=== PATIENT | female | born 1955 | race Caucasian/White ===

== ENCOUNTER 2022-02-24 16:25 | Outpatient (CLI) | payer MEDICARE, OTHER, SELFPAY | END 2022-02-24 16:26 | disposition home or self-care (01) | PROVIDERS: PCP Internal Medicine; Visit Provider Emergency Medicine Emergency Medical Services | DX: R06.02 Shortness of breath (principal) ==

== ENCOUNTER 2022-02-24 17:14 | Emergency (ER) | payer MEDICARE, OTHER, SELFPAY ==
--- NOTE | 2022-02-24 17:38 | CRLHL7_ITS ---
For Patients: As a result of the Cures Act, medical imaging exams and procedure reports are released immediately into your electronic medical record. You may view this report before your referring provider. If you have questions, please contact your health care provider. INDICATION: Shortness of breath. CHEST, ONE VIEW An AP radiograph of the chest was performed. Comparison: No previous studies are currently available for comparison. The lungs appear clear and no pleural effusions are identified. The cardiomediastinal silhouette and pulmonary vasculature appear normal, as do the visualized bones. IMPRESSION: No acute intrathoracic abnormality identified. AMANDA MARSHALL MD [facility] Dictated by: Hiro Marshall MD @ 02/24/2022 18:18:23 (Electronically Signed)
[2022-02-24 17:42] VITALS: BP 124/66; PULSE 71; RESP 16; TEMP 37.5; O2SAT 95; BMI 34.0
--- NOTE | 2022-02-24 17:45 | ED.GENADULT ---
HPI - General Adult General Time Seen by Provider: 17:44 Date Seen: 02/24/22 Chief complaint: Shortness of Breath/Dyspnea Stated complaint: Shortness of breath Time Seen by Provider: 02/24/22 17:15 Source: patient Mode of arrival: ambulatory Limitations: no limitations History of Present Illness HPI narrative: The patient is a 66-year-old female who presents with cough shortness of breath, fever, sore throat, weakness. Symptoms started yesterday worsened today, main complaint is general malaise and body aches and not feeling well. No history of COVID exposure that she knows, no loss of taste or smell. Dr. Jay in his usual Dr.. No chronic lung disease. Chart reviewed. No leg swelling or edema. No bleeding or clotting problems. No hemoptysis. He O2 sat on presentation is 96% on room air. The patient actually called an ambulance but the ambulance followed her into the hospital on her own vehicle. Related Data Home Medications Medication Instructions Recorded Confirmed No Known Home Medications 02/24/22 02/24/22 Allergies Allergy/AdvReac Type Severity Reaction Status Date / Time No Known Drug Allergies Allergy Verified 02/24/22 17:48 Review of Systems Status of ROS: Reports: 6 or more systems reviewed and unremarkable except as noted in History and below [facility] Medical History (Updated 02/24/22 @ 17:49 by Henry Terrell MD) No significant past medical history Surgical History (Updated 02/24/22 @ 17:49 by Ameena Anne RN) History of hysterectomy Social History Smoking Status: Never smoker Do you use any of these nicotine containing products: None Second hand tobacco smoke exposure: No How often do you have a drink containing alcohol: 2-3 times a week How many standard drinks containing alcohol do you have on a typical day: 1 or 2 How often do you have six or more drinks on one occasion: Never AUDIT-C Alcohol total score: 3 Non-prescribed substance use: denies use Exam Narrative: Exam Narrative: Patient is in no apparent distress, talks in even unlabored sentences, noncyanotic. O2 sat is 96% on room air. In general patient is alert orient x3 Neck is supple Chest is clear no rales or wheezing Heart rhythm regular without murmur Extremities are no edema Abdomen benign Neurologic is nonfocal in upper lower extremities Skin exam is unremarkable, warm and dry, good peripheral perfusion noted Const: Vital Signs, click to edit/add: Vital Signs - 24 hr 02/24/22 17:42 02/24/22 18:30 02/24/22 19:00 Temperature 99.5 F Pulse Rate [Right Pulse Oximeter] 71 73 74 Respiratory Rate 16 16 16 Blood Pressure [Ri t Upper Arm] 124/66 136/65 123/56 L Pulse Oximetry 95 93 96 Course Course Hospital Course: Because of the patient's complaint of not feeling well, sore throat, shortness of breath, cough a COVID test will be done. Will get a portable chest x-ray, laboratory studies, EKG, and troponin. Will give IV fluid. Put on oximetry and a monitoring analyst Vital Signs Vital signs: Initial Vital Signs Temperature 99.5 F 02/24/22 17:42 Temperature Source Temporal Artery Scan 02/24/22 17:42 Pulse Rate 71 02/24/22 17:42 Respiratory Rate 16 02/24/22 17:42 Blood Pressure 124/66 02/24/22 17:42 Blood Pressure Mean 85 02/24/22 17:42 Blood Pressure Position Sitting 02/24/22 17:42 Pulse Oximetry 95 02/24/22 17:42 Oxygen Delivery Method 02/24/22 17:42 Vital Signs Temperature 99.5 F 02/24/22 17:42 Pulse Rate 71 02/24/22 17:42 Respiratory Rate 16 02/24/22 17:42 Blood Pressure 124/66 02/24/22 17:42 Pulse Oximetry 95 02/24/22 17:42 Temperature 99.5 F 02/24/22 17:42 Pulse Rate 74 02/24/22 19:00 Respiratory Rate 16 02/24/22 19:00 Blood Pressure 123/56 L 02/24/22 19:00 Pulse Oximetry 96 02/24/22 19:00 Medical Decision Making MDM Narrative Medical decision making narrative: The patient has symptoms consistent with COVID, however could be some type of other viral illness, pneumonia, acute coronary syndrome these will be ruled out. Addendum: Patient has a chest x-ray that by my read looks negative, Radiology confirms. Troponin is negative. EKG by my read shows normal sinus rhythm nonspecific ST changes no acute changes. Patient is not having chest pain. Patient's CBC looks unremarkable, electrolytes her reassuring, strep test from the throat and COVID test are negative. Patient has had stable hemodynamic monitoring, good oximetry. At this point she does not feel short of breath but does have some body aches does not feel well. Likely viral type syndrome. At this point recommend rest fluids observation, Tylenol or Advil as needed, update primary care doctor in the next 2 days, light activity rest. Adequate fluid intake. Return if problems or concerns, and she was comfortable this plan Lab Data Labs: Lab Results 02/24/22 02/24/22 02/24/22 Range/Units 18:08 18:08 18:08 WBC 3.54 L (4.50-11.00) K/uL RBC 4.80 (4.00-5.20) m/uL Hgb 14.0 (12.0-16.0) gm/dL Hct 43.8 (33.0-51.0) % MCV 91 (80-100) fL MCH 29 (26-34) pg MCHC 32 (32-36) gm/dL RDW Coeff of Belinda 13.5 (11.5-15.5) % Plt Count 153 (140-440) K/uL Neut % (Auto) 77.1 H (42.0-72.0) % Lymph % (Auto) 17.2 L (20-44) % [place] % (Auto) 5.1 (0.0-11.0) % Eos % (Auto) 0.0 (0.0-7.0) % Baso % (Auto) 0.3 (0.0-3.0) % Neut # (Auto) 2.70 (1.7-7.0) K/uL Lymph # (Auto) 0.60 L (0.90-2.90) K/uL [place] # (Auto) 0.20 (0.00-0.90) K/UL Eos # (Auto) 0.00 (0.00-0.50) K/uL Baso # (Auto) 0.00 (0.00-0.30) K/uL Abs Immat Gran (auto) 0.01 (0.00-0.30) K/uL Sodium 135 (135-149) mmol/L Potassium 4.0 (3.6-5.1) mmol/L Chloride 104 (96-114) mmol/L Carbon Dioxide 25 (20-32) mmol/L BUN 14 (7-30) mg/dL Creatinine 0.9 (0.5-1.5) mg/dL Estimated Creat Clear 48.43 Glucose 108 (60-115) mg/dL Calcium 8.7 (8.4-10.6) mg/dL Total Bilirubin 0.5 (0.1-1.5) mg/dL Direct Bilirubin 0.2 (0.0-0.5) mg/dL AST 30 (12-35) U/L ALT 21 (4-35) U/L Alkaline Phosphatase 92 (40-150) U/L C-Reactive Protein 2.2 H (0.5-1.0) mg/dL Total Protein 6.7 (6.0-8.3) g/dL Albumin 4.3 (3.3-5.0) g/dL SARS-CoV-2 (PCR) (Negative) Group A Strep DNA (No Detected) POC Troponin I (0.01-0.04) ng/ml 02/24/22 02/24/22 02/24/22 Range/Units 18:08 18:10 18:15 WBC (4.50-11.00) K/uL RBC (4.00-5.20) m/uL Hgb (12.0-16.0) gm/dL Hct (33.0-51.0) % MCV (80-100) fL MCH (26-34) pg MCHC (32-36) gm/dL RDW Coeff of Belinda (11.5-15.5) % Plt Count (140-440) K/uL Neut % (Auto) (42.0-72.0) % Lymph % (Auto) (20-44) % [place] % (Auto) (0.0-11.0) % Eos % (Auto) (0.0-7.0) % Baso % (Auto) (0.0-3.0) % Neut # (Auto) (1.7-7.0) K/uL Lymph # (Auto) (0.90-2.90) K/uL [place] # (Auto) (0.00-0.90) K/UL Eos # (Auto) (0.00-0.50) K/uL Baso # (Auto) (0.00-0.30) K/uL Abs Immat Gran (auto) (0.00-0.30) K/uL Sodium (135-149) mmol/L Potassium (3.6-5.1) mmol/L Chloride (96-114) mmol/L Carbon Dioxide (20-32) mmol/L BUN (7-30) mg/dL Creatinine (0.5-1.5) mg/dL Estimated Creat Clear Glucose (60-115) mg/dL Calcium (8.4-10.6) mg/dL Total Bilirubin (0.1-1.5) mg/dL Direct Bilirubin (0.0-0.5) mg/dL AST (12-35) U/L ALT (4-35) U/L Alkaline Phosphatase (40-150) U/L C-Reactive Protein (0.5-1.0) mg/dL Total Protein (6.0-8.3) g/dL Albumin (3.3-5.0) g/dL SARS-CoV-2 (PCR) Negative SARS-CoV-2 (Negative) Group A Strep DNA NOT DETECTED (No Detected) POC Troponin I 0.00 L (0.01-0.04) ng/ml Discharge Plan Discharge Clinical Impression: Cough with fever Patient Disposition: Home, Self-Care Condition: Stable Additional Instructions: rest, fluids, advil and tylenol as needed, update primary in 2 days, return sooner as needed. Activity Level: Light activity Discharge Diet: Regular Prescriptions: No Action No Known Home Medications 0RF Follow Up/Referrals: Tamia Douglas MD [Primary Care Provider] - Stand Alone Forms: [facility] Instructions
[2022-02-24 18:19] LABS: Basophils Percent Auto 0.3 % (0.0-3.0); Hematocrit 43.8 % (33.0-51.0); Immature Granulocytes Abs Auto 0.01 K/uL (0.00-0.30); Lymphocytes Percent Auto 17.2 % (20-44); Mean Corpuscular HGB Conc 32 gm/dL (32-36); Mean Corpuscular Hemoglobin 29 pg (26-34); Mean Corpuscular Volume 91 fL (80-100); Monocytes Percent Auto 5.1 % (0.0-11.0); Neutrophils Percent Auto 77.1 % (42.0-72.0); Platelet Count* 153 K/uL (140-440); RDW Coefficient of Variation % 13.5 % (11.5-15.5); White Blood Count* 3.54 K/uL (4.50-11.00)
[2022-02-24 18:21] LABS: Slide Review Reflex No
[2022-02-24] MEDS: 0.9 % SODIUM CHLORIDE 1000 ml 1,000 ML 6000 ML IV (18:23)
[2022-02-24 18:30] VITALS: BP 136/65; PULSE 73; RESP 16; O2SAT 93
[2022-02-24 18:38] LABS: Chloride* 104 mmol/L (96-114); Sodium* 135 mmol/L (135-149)
[2022-02-24 18:39] LABS: Albumin* 4.3 g/dL (3.3-5.0)
[2022-02-24 18:41] LABS: Blood Urea Nitrogen* 14 mg/dL (7-30); Carbon Dioxide* 25 mmol/L (20-32); Creatinine* 0.9 mg/dL (0.5-1.5); Est. Creatinine Clearance* 48.43; Estimated Glomerular Filt Rate 70.95
[2022-02-24 18:42] LABS: Alanine Aminotransferase* 21 U/L (4-35); Alkaline Phosphatase* 92 U/L (40-150); Aspartate Amino Transferase* 30 U/L (12-35); Bilirubin Direct* 0.2 mg/dL (0.0-0.5); Bilirubin Total* 0.5 mg/dL (0.1-1.5); Calcium* 8.7 mg/dL (8.4-10.6); Glucose* 108 mg/dL (60-115); Total Protein* 6.7 g/dL (6.0-8.3)
[2022-02-24 18:44] LABS: C Reactive Protein* 2.2 mg/dL (0.5-1.0)
[2022-02-24 19:00] VITALS: BP 123/56; PULSE 74; RESP 16; O2SAT 96
[2022-02-24 19:13] LABS: Strep A DNA Probe* NOT DETECTED (No Detected)
[2022-02-24 19:40] LABS: SARS PCR* Negative SARS-CoV-2 (Negative)
== END 2022-02-24 20:10 | disposition home or self-care (01) ==
LOC: ED 19:58
PROVIDERS: Emergency Provider Family Medicine; PCP Internal Medicine
DX: R05.9 Cough, unspecified (principal); R50.9 Fever, unspecified
CPT/HCPCS: 36415; 71045; 80048; 80076; 84484; 85025; 86140; 87635; 87651; 93005; 99284; J7030

== ENCOUNTER 2022-09-12 07:16 | Outpatient (CLI) | payer MEDICARE, OTHER, SELFPAY | END 2022-09-12 07:17 | disposition home or self-care (01) | PROVIDERS: PCP Internal Medicine; Visit Provider Surgery | DX: Z86.010 Personal history of colon polyps (principal); K63.5 Polyp of colon; K64.4 Residual hemorrhoidal skin tags | CPT/HCPCS: 45380; 45385; 88305; 99153; J1200; J2250; J3010 ==

== ENCOUNTER 2022-09-16 13:33 | Outpatient (CLI) | payer MEDICARE, OTHER, SELFPAY ==
[2022-09-16 17:22] LABS: Cholesterol* 213 mg/dL (90-199); Triglycerides* 246 mg/dL (40-149)
[2022-09-16 17:23] LABS: HDL Cholesterol* 50 mg/dL (>=50); LDL Cholesterol Calculated 114 mg/dL (<100)
== END 2022-09-16 13:34 | disposition home or self-care (01) ==
LOC: NFLDREF 13:33
PROVIDERS: PCP Internal Medicine; Visit Provider Internal Medicine
DX: E66.9 Obesity, unspecified (principal)
CPT/HCPCS: 80061

== ENCOUNTER 2022-09-22 22:15 | Outpatient (CLI) | payer MEDICARE, OTHER, SELFPAY | END 2022-09-22 22:16 | disposition home or self-care (01) | LOC: SLEEP 22:17 | PROVIDERS: PCP Internal Medicine; Visit Provider Internal Medicine | DX: G47.33 Obstructive sleep apnea (adult) (pediatric) (principal); E66.9 Obesity, unspecified | CPT/HCPCS: 95811 ==

== ENCOUNTER 2022-09-30 07:57 | Day surgery (SDC) | payer MEDICARE, OTHER, SELFPAY ==
[2022-09-30] VITALS (12 sets, daily range): BP systolic 104–140; BP diastolic 69–90; PULSE 52–73; RESP 12–16; TEMP 36.4–36.6; O2SAT 93–100; BMI 35.0
[2022-09-30] MEDS: LACTATED RINGERS 1000 ML 1,000 ML 100 ML IV (08:15)
--- NOTE | 2022-09-30 08:50 | SUR.PREOP ---
Patient provided home covid negative results to RN.
[2022-09-30] MEDS: SODIUM CHLORIDE 0.9 % (FLUSH) 10 ML SYRINGE IVF (08:51)
[2022-09-30] MEDS: BUPIVACAINE 0.25% 30 ML INJECTION (10:29)
--- NOTE | 2022-09-30 10:29 | PM.GSPRC ---
Operative Note Date of procedure: 09/30/22 Pre-op diagnosis: 1. Left mid back melanoma. 2. Excised Pigmented seborrheic keratoses. Post-op diagnosis: same Type of Procedure: 1. Wide local excision of left mid back melanoma. Indications: 66-year-old female was seen in clinic with a newly diagnosed left mid back melanoma pop. Patient underwent a shave biopsy of enlarging changing lesion in the superior left mid back. The superior shave biopsy came back as superficial spreading melanoma 0.5 mm thick with no ulceration. The symptomatic lesion inferior to her melanoma was also biopsied and came back as pigmented Inflamed seborrheic keratosis. given the pathological features of her melanoma and its depth, wide local excision with 1 cm margins was recommended. Procedure was discussed in detail. The risks associated procedure including infection, bleeding, seroma, and the need for additional procedures were all discussed with the patient, and she agreed to proceed. Procedure Description: After discussing the risks and benefits of the procedure, the patient signed informed consent.? The operative site was marked and the patient was brought to the operating room. The patient was intubated by anesthesia and placed prone on the operating table with all pressure points padded.? The operative site was then prepped and draped in the usual sterile fashion.? A time-out was then performed. Both Excision scars in the left mid back were identified, and the superior scar was the melanoma scar. This was measuring 1.4 mm wide. 1 cm medial and lateral margins were marked on each side of the melanoma excision scar. A large elliptical incision was then marked and local anesthetic was injected. A vertical elliptical surgical incision was made with a scalpel. Dermis was divided with cautery down to the muscle fascia. The ellipse of skin containing the excised melanoma was then excised with cautery. The melanoma scar was circled with a marking pen. The ellipse of skin was measured with a single stitch superior and double lateral and sent to pathology. The ellipse of skin was measuring 19 x 3.5 cm. Hemostasis was achieved with cautery and Vicryl stick ties. Skin flaps were developed medially and laterally with cautery. The incision was then closed in multiple layers with interrupted 2-0 and 3-0 Vicryl sutures. The length of the incision was 19 cm. Steri-Strips and sterile pressure dressing were placed over the incision. ? The patient was then woken and transported to the recovery area in stable condition. ? The patient tolerated the procedure well. Findings: both biopsy scars were excised in the ellipse of skin. Melanoma was excised with 1 cm lateral and medial margins down to the muscle fascia. Anesthesia: GETA Surgeon: Cristobal Polo MD Additional Specimen Information: 1. Left mid back melanoma. Condition: stable Disposition: PACU
[2022-09-30] MEDS: LACTATED RINGERS 1000 ML 1,000 ML 35 ML IV (10:49)
--- NOTE | 2022-09-30 10:56 | W.ANESCHARGE ---
Anesthesia Charges Start Date/Time Anesthesia Start Date: 09/30/22 Anesthesia Start Time: 09:26 Stop Date/Time Anesthesia Stop Date: 09/30/22 Anesthesia Stop Time: 10:55
--- NOTE | 2022-09-30 10:59 | W.ANESCHARGE ---
Anesthesia Charges Start Date/Time Anesthesia Start Date: 09/30/22 Anesthesia Start Time: 09:26 Stop Date/Time Anesthesia Stop Date: 09/30/22 Anesthesia Stop Time: 10:55
[2022-09-30] MEDS: HYDROCODONE-ACETAMIN 5-325 MG 1 TAB PO (11:43)
== END 2022-09-30 12:30 | disposition home or self-care (01) ==
PROVIDERS: PCP Internal Medicine; Visit Provider Surgery
PROC: (CPT 11606; principal; 2022-09-30 09:15)
DX: C43.59 Malignant melanoma of other part of trunk (principal); L82.0 Inflamed seborrheic keratosis
CPT/HCPCS: 11606; 12035; 300; 88305; A9270; J0330; J2250; J2405; J2704; J3010; J3490; J7120

== ENCOUNTER 2022-12-11 14:22 | Outpatient (CLI) | payer MEDICARE, OTHER, SELFPAY ==
--- NOTE | 2022-12-11 14:40 | CRLHL7_ITS ---
For Patients: As a result of the Cures Act, medical imaging exams and procedure reports are released immediately into your electronic medical record. You may view this report before your referring provider. If you have questions, please contact your health care provider. BILATERAL SCREENING MAMMOGRAM WITH COMPUTER-AIDED DETECTION AND TOMOSYNTHESIS TECHNIQUE: CC and MLO views were obtained. These mammographic images have been obtained using full-field digital technique. These mammographic images were interpreted with the benefit of computer-aided detection. Breast Tomosynthesis was used in this interpretation. COMPARISON FILM: 09/04/21, 07/11/17, 06/11/12. FINDINGS: There are scattered areas of fibroglandular density IMPRESSION: There is no radiographic evidence for malignancy. ASSESSMENT: BI-RADS Category 1: Negative RECOMMENDATION: Routine screening mammogram in 1 year. A lay language report of this examination will be provided to the patient. Long Ugarte M.D. Diagnostic Radiologist [email or web address] EJ/kisha Transcribed: 2:02 p.jam beard/Dictated by: Long Ugarte MD @ 12/12/2022 9:02:00 AM (Electronically Signed)
--- NOTE | 2022-12-11 15:00 | CRLHL7_ITS ---
For Patients: As a result of the Century Cures Act, medical imaging exams and procedure reports are released immediately into your electronic medical record. You may view this report before your referring provider. If you have questions, please contact your health care provider. DXA BONE MINERAL DENSITY STUDY Reason for exam: Asymptomatic age-related postmenopausal state Current height (in): 64.5. Weight (lb): 200 Menopause age: 47 Ethnicity: White 1. Have you had a previous hip or vertebral fracture? No. 2. Have you had any fractures during your adult life which did not result from significant trauma (e.g., auto accident)? No. 3. Did either of your parents have a hip fracture? Yes. 4. Do you smoke? No. 5. Have you ever taken Glucocorticoids? No. 6. Do you have rheumatoid arthritis? No. 7. Do you have secondary osteoporosis? No. 8. Do you drink 3 or more alcoholic drinks per day? No. 9. Are you being treated for osteoporosis? No. 10. Have you ever taken any of the following medications: Actonel, Evista, Fosamax, Miacalcin, Reclast, Boniva, Forteo, HRT (i.e., estrogen/hormone therapy), Protelos, Prolia, Vitamin D, Calcium, other ??? please specify. ANSWER: No. 11. Do you have any of the following medical conditions: Anorexia or bulimia, asthma or emphysema, end stage renal disease, hyperparathyroidism, any seizure disorders, cancer, inflammatory bowel diseases, hysterectomy, other ??? please specify. ANSWER: Yes, cancer and hysterectomy. 12. What was your maximum height (inches)? 65. 13. Do you perform weight bearing exercise regularly? Yes. 14. Do you regularly consume dairy products? Yes. 15. Do you drink caffeinated beverages? No. If female: 16. At what age did your period start? 13. 17. Are you premenopausal? No. 18. How many full-term pregnancies have you had? 3. 19. Have you ever missed your period for more than 6 months in a row (not including or menopause)? No. TECHNIQUE: Bone mineral density study was performed using the [employer] network. FINDINGS: The results of the study expressed as bone mineral density (BMD) are as follows: Lumbar spine L1 to L4: BMD: 0.923 g/cm2. T-score: -1.1. Z-score: 0.7 Neck Left: BMD: 0.765 g/cm2. T-score: -0.8. Z-score: 0.8 Right: BMD: 0.763 g/cm2. T-score: -0.8. Z-score: 0.8 Total Left: BMD: 0.882 g/cm2. T-score: -0.5. Z-score: 0.8 Right: BMD: 0.829 g/cm2. T-score: -0.9. Z-score: 0.4 IMPRESSION: Osteopenia. FRAX 10-year Fracture Risk Major Osteoporotic Fracture: 14% Hip Fracture: 0.6% Reported Risk Factors: [place] () Neck BMD=0.763, BMI= 33.8, parental fracture Long Ugarte M.D. Diagnostic Radiologist [email or web address] EJ/kisha beard/Dictated by: Long Ugarte MD @ 12/12/2022 9:11:00 AM (Electronically Signed)
== END 2022-12-11 14:23 | disposition home or self-care (01) ==
LOC: MAMMO 14:23
PROVIDERS: PCP Internal Medicine; Visit Provider Internal Medicine
DX: Z12.31 Encounter for screening mammogram for malignant neoplasm of breast (principal); Z78.0 Asymptomatic menopausal state; M85.89 Other specified disorders of bone density and structure, multiple sites
CPT/HCPCS: 77063; 77067; 77080

== ENCOUNTER 2023-10-16 07:48 | Outpatient (CLI) | payer MEDICARE, OTHER, SELFPAY ==
--- NOTE | 2023-10-16 09:03 | W.ANESCHARGE ---
Anesthesia Charges Start Date/Time Anesthesia Start Date: 10/16/23 Anesthesia Start Time: 08:26 Stop Date/Time Anesthesia Stop Date: 10/16/23 Anesthesia Stop Time: 09:01
--- NOTE | 2023-10-16 10:10 | W.ANESCHARGE ---
Anesthesia Charges Start Date/Time Anesthesia Start Date: 10/16/23 Anesthesia Start Time: 08:26 Stop Date/Time Anesthesia Stop Date: 10/16/23 Anesthesia Stop Time: 09:01
== END 2023-10-16 07:49 | disposition home or self-care (01) ==
PROVIDERS: PCP Internal Medicine; Visit Provider Surgery
DX: K63.5 Polyp of colon (principal); Z86.010 Personal history of colon polyps; Z98.890 Other specified postprocedural states
CPT/HCPCS: 00811; 45380; 45385; 88305; J2704

== ENCOUNTER 2024-01-29 10:02 | Outpatient (CLI) | payer MEDICARE, OTHER, SELFPAY ==
--- NOTE | 2024-01-29 10:15 | CRLHL7_ITS ---
For Patients: As a result of the Century Cures Act, medical imaging exams and procedure reports are released immediately into your electronic medical record. You may view this report before your referring provider. If you have questions, please contact your health care provider. BILATERAL SCREENING MAMMOGRAM WITH COMPUTER-AIDED DETECTION AND TOMOSYNTHESIS TECHNIQUE: CC and MLO views were obtained. These mammographic images have been obtained using full-field digital technique. These mammographic images were interpreted with the benefit of computer-aided detection. Breast Tomosynthesis was used in this interpretation. COMPARISON FILM: 12/11/22, 09/04/21, 07/11/17. FINDINGS: There are scattered areas of fibroglandular density. IMPRESSION: There is no radiographic evidence for malignancy. ASSESSMENT: BI-RADS Category 1: Negative RECOMMENDATION: Routine screening mammogram in 1 year. A lay language report of this examination will be provided to the patient. Long Ugarte M.D. Diagnostic Radiologist [email or web address] SP/Dictated by: Long Ugarte MD @ 01/30/2024 11:58:00 AM (Electronically Signed)
== END 2024-01-29 10:03 | disposition home or self-care (01) ==
LOC: MAMMO 10:03
PROVIDERS: PCP Internal Medicine; Visit Provider Internal Medicine
DX: Z12.31 Encounter for screening mammogram for malignant neoplasm of breast (principal)
CPT/HCPCS: 77063; 77067

== ENCOUNTER 2024-05-21 12:56 | Outpatient (REF) | payer MEDICARE, OTHER, SELFPAY ==
[2024-05-21 13:38] LABS: Basophils Absolute Auto 0.04 K/uL (0.00-0.30); Basophils Percent Auto 0.7 % (0.0-3.0); Eosinophils Absolute Auto 0.05 K/uL (0.00-0.50); Eosinophils Percent Auto 0.9 % (0.0-7.0); Hematocrit* 45.9 % (33.0-51.0); Hemoglobin* 14.8 gm/dL (12.0-16.0); Immature Granulocytes Abs Auto 0.01 K/uL (0.00-0.30); Immature Granulocytes Pct Auto 0.2 %; Lymphocytes Absolute Auto 1.88 K/uL (0.90-2.90); Mean Corpuscular HGB Conc 32 gm/dL (32-36); Mean Corpuscular Hemoglobin 30 pg (26-34); Mean Corpuscular Volume 92 fL (80-100); Monocytes Percent Auto 3.6 % (0.0-11.0); Neutrophils Absolute Auto 3.68 K/uL (1.7-7.0); Neutrophils Percent Auto 62.6 % (42.0-72.0); Platelet Count* 214 K/uL (140-440); RDW Coefficient of Variation % 13.2 % (11.5-15.5); Red Blood Count* 4.97 m/uL (4.00-5.20); White Blood Count* 5.87 K/uL (4.50-11.00)
[2024-05-21 13:52] LABS: Albumin* 4.4 g/dL (3.3-5.0); Chloride* 103 mmol/L (96-114)
[2024-05-21 13:53] LABS: Slide Review Reflex No; Sodium* 141 mmol/L (135-149)
[2024-05-21 13:55] LABS: Anion Gap 8 mEq/L (7-15); Aspartate Amino Transferase* 36 U/L (12-35); Bilirubin Total* 0.5 mg/dL (0.1-1.5); Carbon Dioxide* 30 mmol/L (20-32); Creatinine* 0.8 mg/dL (0.5-1.5); Estimated Glomerular Filt Rate 81 ml/min; Total Protein* 6.8 g/dL (6.0-8.3)
[2024-05-21 13:56] LABS: Alanine Aminotransferase* 30 U/L (4-35); Alkaline Phosphatase* 82 U/L (40-150); Blood Urea Nitrogen* 15 mg/dL (7-30); Calcium* 10.2 mg/dL (8.4-10.6); Glucose* 124 mg/dL (60-115)
[2024-05-21 13:57] LABS: Iron* 107 ug/dL (37-170)
[2024-05-21 14:06] LABS: Percent Iron Saturation 30 % (20-50); Total Iron Binding Capacity 360 ug/dL (265-497)
[2024-05-21 14:13] LABS: Vitamin D 25 Hydroxy* 60 ng/mL (30-80)
[2024-05-21 14:14] LABS: Free T4 Free Thyroxine* 0.94 ng/dL (0.70-1.85)
[2024-05-21 15:39] LABS: Vitamin B12* 592 pg/mL (243-894)
[2024-05-22 19:29] LABS: Follicle Stimulating Hormone 74.7 IU/L; Luteinizing Hormone, Serum 32.7 IU/L
[2024-05-22 22:55] LABS: Prolactin 5.3 ng/mL (2.8-29.2)
[2024-05-23 12:35] LABS: DHEAS 113 ug/dL (9-246)
[2024-05-27 04:02] LABS: Androstenedione by TMS 0.597 ng/mL (0.130-0.820)
[2024-05-27 04:03] LABS: Sex Hormone Binding Globulin 27 nmol/L (17-125); Testosterone, Free LC-MS/MS 2.6 pg/mL (0.6-3.8); Testosterone, LC-MS/MS 14 ng/dL (5-32)
== END 2024-05-21 12:57 | disposition home or self-care (01) ==
LOC: NPINS 12:56
PROVIDERS: PCP Internal Medicine; Visit Provider Nurse Practitioner Adult Health
DX: L65.9 Nonscarring hair loss, unspecified (principal); Z13.21 Encounter for screening for nutritional disorder; M85.80 Other specified disorders of bone density and structure, unspecified site; G47.09 Other insomnia; Z13.29 Encounter for screening for other suspected endocrine disorder; Z13.0 Encounter for screening for diseases of the blood and blood-forming organs and certain disorders involving the immune mechanism
CPT/HCPCS: 80053; 82157; 82306; 82607; 82627; 82728; 83001; 83002; 83540; 83550; 84146; 84270; 84402; 84403; 84439; 84443; 85025; 85520; 85525; 85598; 85610; 85613; 85670; 85730; 86038; 86160; 86431

== ENCOUNTER 2025-01-13 07:33 | Outpatient (CLI) | payer MEDICARE, SELFPAY ==
--- NOTE | 2025-01-13 09:15 | P.ANES_ITS ---
Anesthesia Charges Start Date/Time Anesthesia Start Date: 01/13/25 Anesthesia Start Time: 08:47 Stop Date/Time Anesthesia Stop Date: 01/13/25 Anesthesia Stop Time: 09:12 Coding CPT Codes CPT Codes: CARMEN LWRuth INTST NDSC NOS - 13068 ([id number]) P2 - PATIENT W/MILD SYST DISEASE, QX - PROGRAM AIDE GROUP WORK SVC W/ MD MED DIRECTION, QK - BIODIESEL PLANT SUPERINTENDENT 2-4 CNCRNT ANES PROC
--- NOTE | 2025-01-13 09:15 | W.ANESCHARGE ---
Anesthesia Charges Start Date/Time Anesthesia Start Date: 01/13/25 Anesthesia Start Time: 08:47 Stop Date/Time Anesthesia Stop Date: 01/13/25 Anesthesia Stop Time: 09:12 Coding CPT Codes CPT Codes: CARMEN LWRuth INTST NDSC NOS - 92964 ([id number]) P2 - PATIENT W/MILD SYST DISEASE, QX - LOAN EXPEDITOR SVC W/ MD MED DIRECTION, QK - SUPPORT ANALYST 2-4 CNCRNT ANES PROC
--- NOTE | 2025-01-13 09:16 | P.ANES_ITS ---
Anesthesia Charges Start Date/Time Anesthesia Start Date: 01/13/25 Anesthesia Start Time: 08:47 Stop Date/Time Anesthesia Stop Date: 01/13/25 Anesthesia Stop Time: 09:12 Coding CPT Codes CPT Codes: CARMEN LWR INTST NDSC NOS - 84096 ([id number]) QK - ROCKET ENGINE TESTER 2-4 CNCRNT CARMEN PROC, QX - LOGISTICS ANALYST SVC W/ MD MED DIRECTION, P2 - PATIENT W/MILD SYST DISEASE
--- NOTE | 2025-01-13 09:16 | W.ANESCHARGE ---
Anesthesia Charges Start Date/Time Anesthesia Start Date: 01/13/25 Anesthesia Start Time: 08:47 Stop Date/Time Anesthesia Stop Date: 01/13/25 Anesthesia Stop Time: 09:12 Coding CPT Codes CPT Codes: CARMEN LWR INTST NDSC NOS - 20262 ([id number]) QK - PARKING INSPECTOR 2-4 CNCRNT CARMEN PROC, QX - LAND LAW EXAMINER SVC W/ MD MED DIRECTION, P2 - PATIENT W/MILD SYST DISEASE
== END 2025-01-13 07:34 | disposition home or self-care (01) ==
LOC: OP CLINIC 07:36
PROVIDERS: PCP Internal Medicine; Visit Provider Surgery
DX: Z12.11 Encounter for screening for malignant neoplasm of colon (principal); Z86.0101 Personal history of adenomatous and serrated colon polyps; D12.2 Benign neoplasm of ascending colon
CPT/HCPCS: 00811; 45385; 88305; J2704

== ENCOUNTER 2025-08-19 08:34 | Outpatient (CLI) | payer MEDICARE, SELFPAY ==
--- NOTE | 2025-08-19 08:45 | CRLHL7_ITS ---
For Patients: As a result of the Century Cures Act, medical imaging exams and procedure reports are released immediately into your electronic medical record. You may view this report before your referring provider. If you have questions, please contact your health care provider. INDICATION: BILATERAL SCREENING MAMMOGRAM, ASYMPTOMATIC 69 Y/O FEMALE COMPARISON: 01/29/2024, 12/11/2022, 09/04/2021 TECHNIQUE: Digital mammogram in CC and MLO projections including computer-aided detection (CAD) and tomosynthesis. BREAST COMPOSITION: There are scattered areas of fibroglandular density. FINDINGS: No suspicious findings. ASSESSMENT: BI-RADS 1 Negative RECOMMENDATION: Annual screening mammogram. A lay language report of this examination will be provided to the patient. Dictated by: Mckenna Sorto MD @ 08/19/2025 14:29:58 (Electronically Signed)
== END 2025-08-19 08:35 | disposition home or self-care (01) ==
LOC: MAMMO 08:35
PROVIDERS: PCP Internal Medicine; Visit Provider Internal Medicine
DX: Z12.31 Encounter for screening mammogram for malignant neoplasm of breast (principal)
CPT/HCPCS: 77063; 77067

== ENCOUNTER 2025-08-23 14:59 | Outpatient (CLI) | payer MEDICARE, SELFPAY | END 2025-08-23 15:00 | disposition home or self-care (01) | PROVIDERS: PCP Internal Medicine; Visit Provider Internal Medicine | DX: Z01.818 Encounter for other preprocedural examination (principal); L65.9 Nonscarring hair loss, unspecified; M85.80 Other specified disorders of bone density and structure, unspecified site | CPT/HCPCS: 80053; 82306; 83540; 83550; 84443 ==